=== PATIENT | female | born 1990 | race Caucasian/White ===

== ENCOUNTER 2016-07-24 09:51 | Emergency (ER) | payer OTHER ==
[~2016-07-24] VITALS: Ht 154.9 cm; Wt 71.9 kg
[~2016-07-24 09:51] MED LIST: DESO1TAB47 PO; LEVO1TAB29 PO
[2016-07-24 10:01] VITALS: BP 125/82
[2016-07-24] MEDS ORDERED: methylPREDNISolone SOD SUCC 125 MG/2 ML ONE (10:55)
[2016-07-24] MEDS ORDERED: DIPHENHYDRAMINE 50 MG/ML, 1ML ONE (10:55)
[2016-07-24] MEDS ORDERED: FAMOTIDINE 20 MG/2 ML ONE (10:56)
[2016-07-24 11:41] LABS: HCG UR OBC PASS
== END 2016-07-24 12:45 | disposition home or self-care (01) ==
LOC: ED 11:45
DX: R30.0 Dysuria (principal); F17.200 Nicotine dependence, unspecified, uncomplicated; S93.622A Sprain of tarsometatarsal ligament of left foot, initial encounter; X58.XXXA Exposure to other specified factors, initial encounter; Y93.89 Activity, other specified; Y92.89 Other specified places as the place of occurrence of the external cause; Y99.8 Other external cause status
CPT/HCPCS: 71010; 81003; 81025; 87086

== ENCOUNTER 2020-12-20 18:12 | Emergency (ER) | payer MEDICAID, OTHER ==
[~2020-12-20] VITALS: Ht 154.9 cm; Wt 75.7 kg
[2020-12-20 18:48] LABS: BASOPHILS % (AUTO) 0 % (0-1); EOSINOPHILS % (AUTO) 1 % (1-7); LYMPHOCYTES % (AUTO) 22 % (22-44); MEAN CORPUSCULAR HEMOGLOBIN 34.9 pg (27.0-34.8); MEAN CORPUSCULAR HGB CONC 34.8 g/dL (32.4-35.8); MEAN PLATELET VOLUME 7.4 fL (7.4-10.4); MONOCYTES % (AUTO) 8 % (2-9); NEUTROPHILS % (AUTO) 69 % (42-75); PLATELET COUNT 285 x10^3/uL (130-400); RED BLOOD COUNT 4.06 x10^6/uL (3.82-5.3); RED CELL DISTRIBUTION WIDTH 12.3 % (9.6-15.2)
[2020-12-20 19:02] LABS: ALBUMIN 3.8 g/dL (3.4-5.0); ANION GAP 8 mmol/L (5-15); CALCIUM 9.5 mg/dL (8.5-10.1); CHLORIDE 103 mmol/L (98-107)
[2020-12-20 19:07] LABS: ALANINE AMINOTRANSFERASE 34 U/L (12-78); ALKALINE PHOSPHATASE 63 U/L (45-117); BILIRUBIN,TOTAL 0.4 mg/dL (0.2-1.0); CREATININE 0.67 mg/dL (0.55-1.02); TOTAL PROTEIN 8.1 g/dL (6.4-8.2)
--- NOTE | 2020-12-20 19:44 | NUR ---
PT TO ROOM 18. CARE ASSUMED. MD AT BEDSIDE.
[2020-12-20] MEDS ORDERED: KETOROLAC 60 MG/2 ML ONE (19:49)
[2020-12-20] MEDS ORDERED: PHENAZOPYRIDINE 200 MG TABLET ONE (19:49)
[2020-12-20 19:56] LABS: MICROSCOPIC AUTO
[2020-12-20] MEDS ORDERED: KETOROLAC 30 MG/1 ML IM ONE (20:00)
[2020-12-20] MEDS ORDERED: PHENAZOPYRIDINE 200 MG TABLET PO ONE (20:00)
[2020-12-20] MEDS ORDERED: CEFDINIR 300 MG CAPSULE ONE (20:29)
[2020-12-20] MEDS ORDERED: CEFDINIR 300 MG CAPSULE PO/NG ONE (20:30)
[2020-12-20 20:57] VITALS: BP 144/86
== END 2020-12-20 21:00 | disposition home or self-care (01) ==
LOC: ED 18:42
DX: N30.90 Cystitis, unspecified without hematuria (principal); F17.200 Nicotine dependence, unspecified, uncomplicated
CPT/HCPCS: 36415; 76770; 80053; 81001; 84703; 85025; 87077; 87086; 87186; 96372; 99284; J1885